=== PATIENT | male | born 1965 | race Caucasian/White ===

== ENCOUNTER 2016-10-26 10:26 | Emergency (ER) | payer OTHER ==
[~2016-10-26] VITALS: Ht 172.7 cm; Wt 84.4 kg
[2016-10-26 11:12] LABS: EOSINOPHIL (%) 5.4 % (0-5); EOSINOPHIL COUNT 0.4 K/uL (0-0.3); HEMATOCRIT 41.7 % (38.0-50.0); IMMATURE GRANULOCYTE (%) 0.1 % (0.0-0.7); IMMATURE GRANULOCYTE COUNT 0.1 K/uL; LYMPHOCYTE COUNT 1.8 K/uL (1.0-2.8); MCH 31.2 PG (29.0-34.0); MCHC 34.1 G/DL (30.0-36.0); MCV 91.6 FL (86-99); MEAN PLAT.VOLUME 10.8 uM^3 (9.0-12.4); MONOCYTE (%) 7.8 % (3-12); MONOCYTE COUNT 0.5 K/uL (0-0.8); NEUTROPHIL (%) 59.6 % (45-76); PLATELET COUNT 207 K/uL (156-360); RBC DIS.WIDTH-CV 12.5 % (11.8-14.6); RBC DIS.WIDTH-SD 40.9 % (39-53); RED BLOOD COUNT 4.55 M/uL (4.00-5.50); WHITE BLOOD COUNT 6.8 K/uL (4.1-10.2)
[2016-10-26 11:21] LABS: CHLORIDE 110 mEq/L (99-109); SODIUM 144 mEq/L (136-147)
[2016-10-26 11:22] LABS: GLUCOSE 104 mg/dL (70-99)
[2016-10-26 11:24] LABS: ANION GAP 9 MEQ/L (2-14)
[2016-10-26 11:26] LABS: GFR ESTIMATE (CALCULATED) > 59 mL/min/
[2016-10-26 11:27] LABS: UREA NITROGEN (BUN) 16 mg/dL (9-23)
[2016-10-26] MEDS ORDERED: ANTIVERT25 MG PO (13:51)
[2016-10-26 14:30] VITALS: BP 112/65
== END 2016-10-26 14:31 | disposition left against medical advice (07) ==
LOC: EME 10:26
PROVIDERS: Emergency Medicine
DX: R42 Dizziness and giddiness (principal); R51 Headache; R68.83 Chills (without fever); R11.0 Nausea
CPT/HCPCS: 70450; 80048; 85025; 93005; 99281; 99285; J2405; J7030